=== PATIENT | female | born 1995 | race African-American/Black ===

== ENCOUNTER 2017-10-17 00:22 | Emergency (ER) | payer MEDICAID, OTHER ==
[~2017-10-17] VITALS: Ht 162.6 cm; Wt 60.0 kg
[2017-10-17 00:33] VITALS: BP 110/68; PULSE 105; RESP 16; TEMP 97.8; O2SAT 100
[2017-10-17] MEDS ORDERED: OMEP20TA93 PO (00:39)
[2017-10-17] MEDS ORDERED: RANI150T PO (00:39)
[2017-10-17 00:50] VITALS: O2SAT 100
--- NOTE | 2017-10-17 01:03 | PD ---
HPI Chief Complaint: Seizure Time Seen by Provider: 01:02 Travel History International Travel<30 days: No Contact w/Intl Traveler<30days: No Traveled to known affect area: No History of Present Illness HPI 21-year-old female came to the emergency room after having a syncopal episode followed by seizure at around 10:30 PM last night. Patient said that she had donated blood earlier like at noon yesterday. She has done this in the past. But after donating blood she has been feeling little lightheaded. She was in the bus returning home when she started getting really dizzy and then passed out. She does not remember after that what happened but this was as per the bystanders who called 911. Patient was brought in by EMS. By the time she came to the emergency patient was fully awake with GCS of 15. Vital signs are stable. Patient is not complaining of any pain or any other complaints at this point. She does not have history of seizures. No history of tongue bite or incontinence. PFSH Past Medical History Narrative Medical List of her past medical, surgical, social and family history reviewed from the nursing note. GERD: Yes ?: Not LMP: 09/25/17 Past Surgical History Surgical History: No Previous Surgery Social History Alcohol Use: No Tobacco Use: No Substance Use: No Allergies-Medications (Allergen,Severity, Reaction): Coded Allergies: No Known Allergies (Unverified , 10/17/17) Comments No known drug allergies. Reported Meds & Prescriptions Reported Meds & Active Scripts Active Reported Ranitidine (Ranitidine HCl) 150 Mg Tab 150 Mg PO BID Omeprazole 20 Mg Tab 20 Mg PO DAILY Narrative Medication List of her home medications reviewed from the nursing note. Review of Systems Except as stated in HPI: all other systems reviewed are Neg Neurologic: Positive: Syncope, Seizures Physical Exam Narrative GENERAL: Awake, alert, no obvious distress SKIN: Focused skin assessment warm/dry. HEAD: Atraumatic. Normocephalic. EYES: Pupils equal and round. No scleral icterus. No injection or drainage. ENT: No nasal bleeding or discharge. Mucous membranes pink and moist. NECK: Trachea midline. No JVD. CARDIOVASCULAR: Regular rate and rhythm. No murmur appreciated. RESPIRATORY: No accessory muscle use. Clear to auscultation. Breath sounds equal bilaterally. GASTROINTESTINAL: Abdomen soft, non-tender, nondistended. Hepatic and splenic margins not palpable. MUSCULOSKELETAL: No obvious deformities. No clubbing. No cyanosis. No edema. NEUROLOGICAL: Awake and alert. No obvious cranial nerve deficits. Motor grossly within normal limits. Normal speech. PSYCHIATRIC: Appropriate mood and affect; insight and judgment normal. Data Data Last Documented VS Orders Orders Blood Glucose (10/17/17 00:45) Oximetry (10/17/17 00:45) Iv Access Insert/Monitor (10/17/17 00:45) Ecg Monitoring (10/17/17 00:45) Oxygen Administration (10/17/17 00:45) Basic Metabolic Panel (Bmp) (10/17/17 00:45) Complete Blood Count With Diff (10/17/17 01:08) Urinalysis - C+S If Indicated (10/17/17 01:08) Sodium Chlor 0.9% 1000 Ml Inj (Ns 1000 M (10/17/17 01:15) Orthostatic Vital Signs (10/17/17 01:08) Ct Brain W/O Iv Contrast(Rout) (10/17/17 ) Ed Urine Pregnancytest Poc (10/17/17 01:11) Ed Discharge Order (10/17/17 02:57) Labs Laboratory Tests Test 10/17/17 00:53 10/17/17 01:43 10/17/17 02:05 Blood Urea Nitrogen 15 MG/DL Creatinine 0.74 MG/DL Random Glucose 104 MG/DL Calcium Level 7.7 MG/DL Sodium Level 138 MEQ/L Potassium Level 4.6 MEQ/L Chloride Level 107 MEQ/L Carbon Dioxide Level 21.4 MEQ/L Anion Gap 10 MEQ/L Estimat Glomerular Filtration Rate 101 ML/MIN Urine Color YELLOW Urine Turbidity HAZY Urine pH 5.5 Urine Specific [place] 1.033 Urine Protein TRACE mg/dL Urine Glucose (UA) NEG mg/dL Urine Ketones 40 mg/dL Urine Occult Blood NEG Urine Nitrite NEG Urine Bilirubin NEG Urine Urobilinogen LESS THAN 2.0 MG/DL Urine Leukocyte Esterase TRACE Urine RBC 3 /hpf Urine WBC 3 /hpf Urine Squamous Epithelial Cells 5 /hpf Urine Bacteria OCC /hpf Urine Hyaline Casts 3 /lpf Urine Mucus MOD /lpf Urine Yeast (Budding) FEW Microscopic Urinalysis Comment CULT NOT INDICATED White Blood Count 7.1 TH/MM3 Red Blood Count 3.86 MIL/MM3 Hemoglobin 10.0 GM/DL Hematocrit 30.9 % Mean Corpuscular Volume 80.2 FL Mean Corpuscular Hemoglobin 25.9 PG Mean Corpuscular Hemoglobin Concent 32.3 % Red Cell Distribution Width 13.9 % Platelet Count 215 TH/MM3 Mean Platelet Volume 8.7 FL Neutrophils (%) (Auto) 80.1 % Lymphocytes (%) (Auto) 12.5 % Monocytes (%) (Auto) 6.9 % Eosinophils (%) (Auto) 0.2 % Basophils (%) (Auto) 0.3 % Neutrophils # (Auto) 5.7 TH/MM3 Lymphocytes # (Auto) 0.9 TH/MM3 Monocytes # (Auto) 0.5 TH/MM3 Eosinophils # (Auto) 0.0 TH/MM3 Basophils # (Auto) 0.0 TH/MM3 CBC Comment DIFF FINAL Differential Comment MDM Medical Decision Making Medical Screen Exam Complete: Yes Emergency Medical Condition: Yes Medical Record Reviewed: Yes Differential Diagnosis Syncope, seizure, syncope seizure Narrative Course 3:03 AM blood test results are back and within normal limits. CT scan was done and resulted by the radiologist was negative. Patient has not had any more seizure episodes in the emergency room and she has been here close to 3 hours. I am comfortable discharging her home. I have given her instructions which she has understood. Procedures EKG Prior to Arrival: No Diagnosis Primary Impression: Syncope Qualified Codes: R55 - Syncope and collapse Additional Impression: Seizure Referrals: Primary Care Physician 2 days Additional Instructions: Drink lots of fluid to stay hydrated. Return to the ER if condition worsens or any other new concerns. Otherwise follow-up with your primary care. You should not be driving or swimming until he get a clearance from your primary care physician. Med/Other Pt SpecificInfo: No Change to Meds Disposition: 01 DISCHARGE HOME Condition: Stable Martita Cooper MD Oct 17, 2017 01:03
[2017-10-17] MEDS ORDERED: SODIUM CHLOR 0.9% 1000 ML INJ 1,000 ML IV ONE (01:15)
[2017-10-17 01:31] LABS: BICARBONATE 21.4 MEQ/L (21.0-32.0); CALCIUM 7.7 MG/DL (8.5-10.1); CREATININE 0.74 MG/DL (0.50-1.00)
[2017-10-17 02:09] VITALS: BP_SYST 114; BP_SYST 117; BP_SYST 134; BP_DIAS 60; BP_DIAS 62; BP_DIAS 63; RESP 18
[2017-10-17 02:27] LABS: AUTOMATED NEUTROPHIL # 5.7 TH/MM3 (1.8-7.7); BASOPHIL % 0.3 % (0.0-2.0); EOSINOPHIL % 0.2 % (0.0-4.0); HEMATOCRIT 30.9 % (35.0-46.0); LYMPH % 12.5 % (9.0-44.0); LYMPHOCYTE # 0.9 TH/MM3 (1.0-4.8); MEAN CELL VOLUME 80.2 FL (80.0-100.0); MEAN CORPUSCULAR HEMOGLOBIN 25.9 PG (27.0-34.0); MEAN CORPUSCULAR HGB CONC 32.3 % (32.0-36.0); MEAN PLATELET VOLUME 8.7 FL (7.0-11.0); MONO % 6.9 % (0.0-8.0); MONOCYTE # 0.5 TH/MM3 (0-0.9); NEUT % 80.1 % (16.0-70.0); PLATELET COUNT 215 TH/MM3 (150-450); RED BLOOD COUNT 3.86 MIL/MM3 (4.00-5.30); RED CELL DISTRIBUTION WIDTH 13.9 % (11.6-17.2); WHITE BLOOD COUNT 7.1 TH/MM3 (4.0-11.0)
[2017-10-17 02:42] LABS: BACTERIA, URINE OCC /hpf; BILIRUBIN, URINE NEG (NEG); BLOOD, URINE NEG (NEG); GLUCOSE,URINE NEG (NEG); HYALINE CAST, URINE 3 /lpf (RARE); KETONE, URINE 40 mg/dL (NEG); MUCUS URINE MOD /lpf (OCC); NITRITE,URINE NEG (NEG); PH, URINE 5.5 (5.0-8.5); SQUAMOUS EPITHELIAL CELL URINE 5 /hpf (0-5); URINE COLOR YELLOW (YELLW/STRAW); URINE LEUKOCYTE ESTERASE TRACE (NEG)
--- NOTE | 2017-10-17 02:51 | RADRPT ---
EXAM DATE/TIME: 10/17/2017 01:55 [facility] COMPARISON: No previous studies available for comparison. INDICATIONS : Altered mental status; possible seizure. RADIATION DOSE: 35.33 CTDIvol (mGy) MEDICAL HISTORY : None SURGICAL HISTORY : None. ENCOUNTER: Initial ACUITY: 1 day PAIN SCALE: 0/10 LOCATION: cranial TECHNIQUE: Multiple contiguous axial images were obtained of the head. Using automated exposure control and adj ustment of the mA and/or kV according to patient size, radiation dose was kept as low as reasonably a chievable to obtain optimal diagnostic quality images. DICOM format image data is available electro nically for review and comparison. FINDINGS: CEREBRUM: The ventricles are normal for age. No evidence of midline shift, mass lesion, hemorrhage or acute in farction. No extra-axial fluid collections are seen. POSTERIOR FOSSA: The cerebellum and brainstem are intact. The 4th ventricle is midline. The cerebellopontine angle i s unremarkable. EXTRACRANIAL: The visualized portion of the orbits is intact. SKULL: The calvaria is intact. No evidence of skull fracture. CONCLUSION: 1. Negative noncontrast CT brain. Ken Card MD on October 17, 2017 at 2:50 Board Certified Radiologist. This report was verified electronically.
== END 2017-10-17 03:44 | disposition home or self-care (01) ==
LOC: NEPC 00:22
DX: R55 Syncope and collapse (principal); R56.9 Unspecified convulsions; K21.9 Gastro-esophageal reflux disease without esophagitis; Z79.899 Other long term (current) drug therapy
CPT/HCPCS: 70450; 80048; 81001; 84703; 85025; 96360; 96361; 99284; J7030